=== PATIENT | female | born 1985 | race Caucasian/White ===

== ENCOUNTER 2024-04-15 09:51 | Emergency (ER) | payer MEDICARE, MEDICAID, SELFPAY ==
[2024-04-15 09:53] VITALS: BP 108/73; PULSE 78; RESP 18; TEMP 36.8; O2SAT 98
--- NOTE | 2024-04-15 10:04 | ECG_ITS ---
[facility] Test Date: 2024-04-15 Pat Name: Randa Walsh Department: Room: Gender: Female Shove Up: : 1985 Requested By: Susanne Coker Order Number: [id number] Caldwell MD: Rickie Rivera M.D. Measurements Intervals [place] Rate: 67 P: 77 DC: 169 QRS: 80 QRSD: 93 T: 63 QT: 410 QTc: 435 Interpretive Statements SINUS RHYTHM WITH SINUS ARRHYTHMIA No previous ECG available for comparison Electronically Signed On 04-15-2024 12:06:16 CUSTOMER ACCOUNT SPECIALIST by Rickie Rivera M.D. [email or web address]
[2024-04-15 10:23] LABS: Basophils # 0.1 10^3/uL (0.0-0.1); Basophils % 0.8 %; Eosinophils # 0.2 10^3/uL (0.0-0.8); Hematocrit 35.6 % (36-47); Lymphocytes # 1.7 10^3/uL (0.8-4.8); Lymphocytes % 17.4 %; Mean Corpuscular HGB Conc 30.9 g/dL (30-55); Mean Corpuscular Hemoglobin 23.9 pg (27-33); Mean Corpuscular Volume 77.4 fl (85-98); Mean Platelet Volume 9.5 fL (7.4-10.4); Monocytes # 0.6 10^3/uL (0.2-0.9); Monocytes % 6.7 %; Neutrophils # 6.93 10^3/uL (1.8-7.7); Neutrophils % 72.9 %; Nucleated Red Blood Cells % 0 %; Platelet Count 347 10^3/cmm (157-399); Red Cell Distribution Width 17.9 % (12.1-15.1); White Blood Count 9.51 10^3/uL (3.29-11.43)
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
--- NOTE | 2024-04-15 10:33 | PC.PHAR ---
patient is from [facility]
[2024-04-15 10:41] LABS: HCG Qualitative Urine. Negative (Negative)
[2024-04-15 10:48] LABS: Bilirubin Urine Negative (Negative); Blood Urine Negative (Negative); Glucose Urine UA Negative (Normal); Ketones Urine Negative (Negative); Leukocyte Esterase Urine Negative (Negative); Nitrate Urine Negative (Negative); Protein Urine Negative (Negative); Specific Gravity, Urine 1.006 (1.005-1.030); Urine Appearance Clear (CLEAR); Urine Color Yellow (Yellow); Urobilinogen Urine 0.2 mg/dL (Negative); pH Urine 6.5 (5-7)
[2024-04-15 10:50] LABS: Alanine Aminotransferase 10 U/L (0-33); Albumin Level 4.3 g/dL (3.5-5.2); Alkaline Phosphatase 80 U/L (35-105); Anion Gap 15.3 (5-19); Aspartate Amino Transferase 13 U/L (0-32); Blood Urea Nitrogen 10 mg/dL (6-20); Calcium 9.4 mg/dL (8.5-10.5); Carbon Dioxide 24 mmol/L (22-29); Chloride 102 mmol/L (98-107); Globulin 3.1 g/dL (1.3-4.6); Glomerular Filtration Rate 112.5 mL/min (90-130); Glucose 88 mg/dL (65-115); Osmolality Calculated 282 mOsm/kg (285-295); Potassium 4.3 mmol/L (3.5-5.1); Sodium 137 mmol/L (136-145); Thyroid Stimulating Hormone 1.36 uIU/mL (0.27-4.20); Total Bilirubin 0.2 mg/dL (0.15-1.2); Total Protein 7.4 g/dL (6.6-8.7)
[2024-04-15 10:52] LABS: Acetaminophen < 5.0 ug/mL (10-30); Alcohol Level < 10 mg/dL (0-10); Salicylate < 0.3 mg/dL (3-10)
[2024-04-15 10:56] LABS: Amphetamines Screen Urine Negative (Negative); Barbiturates Screen Urine Negative (Negative); Benzodiazepines Screen Urine Negative (Negative); Cocaine Screen Urine Negative (Negative); Opiate Screen Urine Negative (Negative); PCP Screen Urine Negative (Negative); THC Screen Urine Negative (Negative)
[2024-04-15 10:57] LABS: Bacteria Urine TRACE /hpf; RBC Urine 0-4 /hpf (0-2); Squamous Epithelial Cell Urine 0-4 /hpf (0-5); WBC Urine 0-4 /hpf (0-5)
[2024-04-15 11:24] LABS: Influenza A NEGATIVE (Negative); Influenza B NEGATIVE (Negative); Respiratory Syncytial Virus Ce NEGATIVE (Negative); SARS-CoV-2 PCR NEGATIVE (Negative)
[2024-04-15 13:01] VITALS: BP 115/75; PULSE 70; O2SAT 100
== END 2024-04-15 13:06 | disposition home or self-care (01) ==
PROVIDERS: Emergency Provider Emergency Medicine
DX: R45.6 Violent behavior (principal); Z87.820 Personal history of traumatic brain injury; Z11.52 Encounter for screening for COVID-19
CPT/HCPCS: 36415; 80053; 80306; 80307; 81001; 81025; 84443; 85025; 87637; 93005; 99284

== ENCOUNTER 2024-06-19 17:11 | Emergency (ER) | payer MEDICARE, MEDICAID, SELFPAY ==
[2024-06-19 17:28] VITALS: BP 108/67; PULSE 89; RESP 16; TEMP 36.7; O2SAT 97
--- NOTE | 2024-06-19 17:34 | W.ED.GENADLT ---
HPI - General Adult General: Chief complaint: General Medical Stated complaint: TBI, Med check Time Seen by Provider: 06/19/24 17:18 History of Present Illness: 38-year-old female with past medical history of Ray's disease, TBI, essentially nonverbal and bedridden coming from a [facility] for aggressive behavior, reportedly she unable to get in touch with her boyfriend with the phone became agitated and aggressive, required Ativan by the nursing staff and EMS gave her 2.5 Versed. Upon arrival here she is pleasant cooperative follows commands seems to be calm. No other symptoms, she denies any complaints. Related Data Home Medications ?Medication ?Instructions ?Recorded ?Confirmed acetaminophen 325 mg tablet 650 mg PO Q4H 04/15/24 04/15/24 baclofen 5 mg tablet 5 mg PO TID 04/15/24 04/15/24 bisacodyl 10 mg rectal suppository 10 mg LA DAILY 04/15/24 04/15/24 escitalopram oxalate 20 mg tablet 20 mg PO DAILY 04/15/24 04/15/24 hydroxyzine HCl 25 mg tablet 25 mg PO TID 04/15/24 04/15/24 magnesium hydroxide 400 mg/5 mL 30 ml PO DAILY PRN Constipation 04/15/24 04/15/24 oral suspension (Milk of Magnesia) olanzapine 7.5 mg tablet 7.5 mg PO DAILY 04/15/24 04/15/24 polyethylene glycol 3350 17 17 g PO DAILY 04/15/24 04/15/24 gram/dose oral powder (Miralax) Allergies Allergy/AdvReac Type Severity Reaction Status Date / Time No Known Allergies Allergy Verified 06/19/24 17:33 Review of Systems General: Reports: ROS unobtainable due to medical condition Physical Exam Narrative: EXAM NARRATIVE: General: Alert, no acute distress. Skin: Warm, dry. Head: Normocephalic, atraumatic. Neck: Supple, trachea midline. Eye: Extraocular movements are intact. Ears, nose, mouth and throat: mucosa moist. Cardiovascular: Regular, Normal peripheral perfusion. Respiratory: Lungs are clear to auscultation, respirations are non-labored, breath sounds are equal, Symmetrical chest wall expansion. Gastrointestinal: Soft, Nontender, Non distended Musculoskeletal: Normal ROM, no deformity. Neurological: Alert. She moves all extremities. She grunts. She does seem interactive and apparently she is at her baseline. Psychiatric: Calm pleasant cooperative Course Vital Signs: Vital signs: Vital Signs Temperature 98.0 F 06/19/24 17:28 Pulse Rate 84 06/19/24 19:32 Respiratory Rate 16 06/19/24 19:32 Blood Pressure 132/78 06/19/24 19:32 Pulse Oximetry 97 06/19/24 19:32 Oxygen Delivery Me thod Room Air 06/19/24 19:32 MDM - General Adult Medical Decision Making Patient pleasant cooperative upon arrival here, she did have 1 episode of anxiety and we give her some medicine to treat her anxiety as well as to facilitate lab draw and urinalysis obtaining. Workup without significant abnormalities. Her behavioral outburst will need to be managed by her regular doctor but she is otherwise stable for discharge and outpatient follow-up as she is not a danger to herself or others. Lab Data 06/19/24 17:48 06/19/24 17:48 Laboratory Results WBC 7.28 10^3/uL (3.29-11.43) 06/19/24 17:48 RBC 3.92 10^6/uL (3.85-5.65) 06/19/24 17:48 Hgb 9.60 g/dL (11.27-16.99) L 06/19/24 17:48 Hct 31.8 % (36-47) L 06/19/24 17:48 MCV 81.1 fl (85-98) L 06/19/24 17:48 MCH 24.5 pg (27-33) L 06/19/24 17:48 MCHC 30.2 g/dL (30-55) 06/19/24 17:48 RDW 15.9 % (12.1-15.1) H 06/19/24 17:48 Plt Count 339 10^3/cmm (157-399) 06/19/24 17:48 MPV 9.6 fL (7.4-10.4) 06/19/24 17:48 Neut % (Auto) 55.8 % 06/19/24 17:48 Lymph % (Auto) 30.1 % 06/19/24 17:48 [place] % (Auto) 10.4 % 06/19/24 17:48 Eos % (Auto) 2.9 % 06/19/24 17:48 Baso % (Auto) 0.7 % 06/19/24 17:48 Neut # (Auto) 4.06 10^3/uL (1.8-7.7) 06/19/24 17:48 Lymph # (Auto) 2.2 10^3/uL (0.8-4.8) 06/19/24 17:48 [place] # (Auto) 0.8 10^3/uL (0.2-0.9) 06/19/24 17:48 Eos # (Auto) 0.2 10^3/uL (0.0-0.8) 06/19/24 17:48 Baso # (Auto) 0.1 10^3/uL (0.0-0.1) 06/19/24 17:48 Nucleated RBC % (auto) 0 % 06/19/24 17:48 Nucleated RBCs # 0.0 /100WBC 06/19/24 17:48 Sodium 140 mmol/L (136-145) 06/19/24 17:48 Potassium 4.3 mmol/L (3.5-5.1) 06/19/24 17:48 Chloride 105 mmol/L (98-107) 06/19/24 17:48 Carbon Dioxide 24 mmol/L (22-29) 06/19/24 17:48 Anion Gap 15.3 (5-19) 06/19/24 17:48 BUN 16 mg/dL (6-20) 06/19/24 17:48 Creatinine 0.5 mg/dL (0.5-0.9) 06/19/24 17:48 GFR Calculation 138.8 mL/min (90-130) H 06/19/24 17:48 Glucose 86 mg/dL (65-115) 06/19/24 17:48 Calculated Osmolality 290 mOsm/kg (285-295) 06/19/24 17:48 Calcium 8.9 mg/dL (8.5-10.5) 06/19/24 17:48 Total Bilirubin 0.2 mg/dL (0.15-1.2) 06/19/24 17:48 AST 15 U/L (0-32) 06/19/24 17:48 ALT 14 U/L (0-33) 06/19/24 17:48 Alkaline Phosphatase 75 U/L (35-105) 06/19/24 17:48 Total Protein 6.7 g/dL (6.6-8.7) 06/19/24 17:48 Albumin 3.9 g/dL (3.5-5.2) 06/19/24 17:48 Globulin 2.8 g/dL (1.3-4.6) 06/19/24 17:48 HCG, Qual Negative (Negative) 06/19/24 17:48 Urine Color Yellow (Yellow) 06/19/24 20:51 Urine Appearance Clear (CLEAR) 06/19/24 20:51 Urine pH 7.0 (5-7) 06/19/24 20:51 Ur Specific [place] 1.027 (1.005-1.030) 06/19/24 20:51 Urine Protein Negative (Negative) 06/19/24 20:51 Urine Glucose (UA) Negative (Normal) 06/19/24 20:51 Urine Ketones Trace (Negative) 06/19/24 20:51 Urine Blood Negative (Negative) 06/19/24 20:51 Urine Nitrate Negative (Negative) 06/19/24 20:51 Urine Bilirubin Negative (Negative) 06/19/24 20:51 Urine Urobilinogen 1.0 mg/dL (Negative) 06/19/24 20:51 Ur Leukocyte Esterase Negative (Negative) 06/19/24 20:51 Amorphous Sediment Not Reportable 06/19/24 20:51 No radiology studies performed this visit Discharge Plan Discharge Patient Disposition: Home Clinical Impression: Behavioral problems, Anxiety Condition: Stable Prescriptions: No Action olanzapine 7.5 mg tablet 7.5 mg PO DAILY hydroxyzine HCl 25 mg tablet 25 mg PO TID escitalopram oxalate 20 mg tablet 20 mg PO DAILY baclofen 5 mg tablet 5 mg PO TID acetaminophen 325 mg Tablet 650 mg PO Q4H magnesium hydroxide [Milk of Magnesia] 400 mg/5 mL Suspension 30 ml PO DAILY PRN (Reason: Constipation) bisacodyl 10 mg Suppository 10 mg LA DAILY polyethylene glycol 3350 [Miralax] 17 gram/dose Powder 17 g PO DAILY Discharge Orders: Discharge ED (Routine); Ordered 06/19/24 Ordered By: Kathy Heredia Print Language: Norwegian Coding Level of Care Code ED Mash Tub Cooker for Evertg Love
[2024-06-19 17:58] LABS: Basophils # 0.1 10^3/uL (0.0-0.1); Basophils % 0.7 %; Eosinophils # 0.2 10^3/uL (0.0-0.8); Eosinophils % 2.9 %; Hematocrit 31.8 % (36-47); Lymphocytes # 2.2 10^3/uL (0.8-4.8); Lymphocytes % 30.1 %; Mean Corpuscular HGB Conc 30.2 g/dL (30-55); Mean Corpuscular Hemoglobin 24.5 pg (27-33); Mean Corpuscular Volume 81.1 fl (85-98); Mean Platelet Volume 9.6 fL (7.4-10.4); Monocytes # 0.8 10^3/uL (0.2-0.9); Monocytes % 10.4 %; Neutrophils # 4.06 10^3/uL (1.8-7.7); Neutrophils % 55.8 %; Nucleated Red Blood Cells % 0 %; Platelet Count 339 10^3/cmm (157-399); Red Blood Count 3.92 10^6/uL (3.85-5.65); Red Cell Distribution Width 15.9 % (12.1-15.1); White Blood Count 7.28 10^3/uL (3.29-11.43)
[2024-06-19 18:12] LABS: HCG, Serum Qual Negative (Negative)
[2024-06-19 18:20] LABS: Alanine Aminotransferase 14 U/L (0-33); Albumin Level 3.9 g/dL (3.5-5.2); Alkaline Phosphatase 75 U/L (35-105); Anion Gap 15.3 (5-19); Aspartate Amino Transferase 15 U/L (0-32); Blood Urea Nitrogen 16 mg/dL (6-20); Calcium 8.9 mg/dL (8.5-10.5); Carbon Dioxide 24 mmol/L (22-29); Chloride 105 mmol/L (98-107); Globulin 2.8 g/dL (1.3-4.6); Glomerular Filtration Rate 138.8 mL/min (90-130); Glucose 86 mg/dL (65-115); Osmolality Calculated 290 mOsm/kg (285-295); Potassium 4.3 mmol/L (3.5-5.1); Sodium 140 mmol/L (136-145); Total Bilirubin 0.2 mg/dL (0.15-1.2); Total Protein 6.7 g/dL (6.6-8.7)
[2024-06-19] MEDS: LORazepam 1 MG/0.5 ML injection 2 MG IM (18:29)
[2024-06-19] MEDS: haloperidol inj 5 mg/mL INJ 1 mL IM (18:53)
[2024-06-19 19:32] VITALS: BP 132/78; PULSE 84; RESP 16; O2SAT 97
[2024-06-19 21:05] LABS: Bilirubin Urine Negative (Negative); Blood Urine Negative (Negative); Glucose Urine UA Negative (Normal); Ketones Urine Trace (Negative); Leukocyte Esterase Urine Negative (Negative); Nitrate Urine Negative (Negative); Protein Urine Negative (Negative); Specific Gravity, Urine 1.027 (1.005-1.030); Urine Appearance Clear (CLEAR); Urine Color Yellow (Yellow)
[2024-06-19 21:10] LABS: Bacteria Urine None Seen /hpf; Hyaline Casts Urine 0-4 /lpf; RBC Urine 0-2 /hpf (0-2); Squamous Epithelial Cell Urine 0-5 /hpf (0-5); WBC Urine 0-5 /hpf (0-5)
[2024-06-19 21:23] VITALS: BP 103/66; PULSE 68; RESP 16; O2SAT 97
[2024-06-19 22:51] VITALS: BP 103/68; PULSE 89; RESP 16; O2SAT 98
== END 2024-06-19 22:54 | disposition home or self-care (01) ==
PROVIDERS: Emergency Provider Emergency Medicine
DX: F41.9 Anxiety disorder, unspecified (principal)
CPT/HCPCS: 36415; 80053; 81001; 84703; 85025; 96372; 99284; J1630; J2060

== ENCOUNTER 2024-06-28 11:57 | Inpatient (IN) | payer MEDICARE, MEDICAID, SELFPAY ==
[2024-06-28 12:00] VITALS: BP 97/68; PULSE 100; RESP 18; TEMP 36.8; O2SAT 96
--- NOTE | 2024-06-28 12:32 | CTR_ITS ---
PROCEDURE INFORMATION: Exam: CT Head Without Contrast Exam date and time: 06/28/2024 1:07 PM Age: 38 years old Clinical indication: Altered mental status/memory loss; Additional info: AMS. HX of tbi TECHNIQUE: Imaging protocol: Computed tomography of the head without contrast. Radiation optimization: All CT scans at this facility use at least one of these dose optimization techniques: automated exposure control; mA and/or kV adjustment per patient size (includes targeted exams where dose is matched to clinical indication); or iterative reconstruction. COMPARISON: No relevant prior studies available. RADIATION DOSE METRICS: Total DLP (mGy-cm): 1066.39 FINDINGS: Brain: No intracranial hemorrhage. No acute infarct. No extra-axial fluid collection. Cerebral ventricles: No ventriculomegaly. Paranasal sinuses: Visualized sinuses are unremarkable. No fluid levels. Mastoid air cells: Visualized mastoid air cells are well aerated. Bones: Noam holes noted in the right anterior and posterior skull near the vertex. Soft tissues: Unremarkable. CT/CT head wo con* [id number] IMPRESSION: No acute intracranial abnormality.
--- NOTE | 2024-06-28 12:32 | XRR_ITS ---
PROCEDURE INFORMATION: Exam: XR Chest Exam date and time: 06/28/2024 12:35 PM Age: 38 years old Clinical indication: Other: AMS TECHNIQUE: Imaging protocol: Radiologic exam of the chest. Views: 1 view. COMPARISON: No relevant prior studies available. FINDINGS: Lungs: No consolidation. Pleural spaces: No sizable pleural effusion or pneumothorax. Heart/Mediastinum: No cardiomegaly. Bones/joints: Unremarkable. XR/XR chest 1V portable [id number] IMPRESSION: No acute intrathoracic findings.
[2024-06-28] MEDS: OLANZapine 10 mg ODT PO (12:41)
[2024-06-28 13:15] LABS: Basophils # 0.1 10^3/uL (0.0-0.1); Basophils % 0.6 %; Eosinophils # 0.2 10^3/uL (0.0-0.8); Hematocrit 31.1 % (36-47); Lymphocytes # 1.5 10^3/uL (0.8-4.8); Lymphocytes % 19.2 %; Mean Corpuscular HGB Conc 29.6 g/dL (30-55); Mean Corpuscular Hemoglobin 23.8 pg (27-33); Mean Corpuscular Volume 80.4 fl (85-98); Mean Platelet Volume 9.9 fL (7.4-10.4); Monocytes # 0.6 10^3/uL (0.2-0.9); Monocytes % 7.3 %; Neutrophils # 5.62 10^3/uL (1.8-7.7); Neutrophils % 70.6 %; Nucleated Red Blood Cells % 0 %; Platelet Count 307 10^3/cmm (157-399); Red Blood Count 3.87 10^6/uL (3.85-5.65); Red Cell Distribution Width 15.4 % (12.1-15.1); White Blood Count 7.96 10^3/uL (3.29-11.43)
[2024-06-28] MEDS: haloperidol inj 5 mg/mL INJ 1 mL IVP (13:16)
--- NOTE | 2024-06-28 13:33 | W.ED.GENADLT ---
HPI - General Adult General: Chief complaint: General Medical Stated complaint: Combative, HX of TBI Time Seen by Provider: 06/28/24 12:00 Source: patient Mode of arrival: ambulatory Limitations: no limitations History of Present Illness: Patient is been having increased aggression today after not being allowed to go somewhere else with the other residents at the facility. She has a history of Center Line's and TBI was also mentioned. She has complaints of headache otherwise no acute complaints. On arrival she was acting okay. Had been given 5 of Versed in the ambulance to calm down. Any change in patient's atmosphere such as changing rooms or doing a test does result in significant outburst. Related Data Home Medications ?Medication ?Instructions ?Recorded ?Confirmed acetaminophen 325 mg tablet 650 mg PO Q4H PRN general 04/15/24 06/28/24 discomfort baclofen 5 mg tablet 5 mg PO TID 04/15/24 06/28/24 bisacodyl 10 mg rectal suppository 10 mg [place] DAILY PRN Constipation 04/15/24 06/28/24 escitalopram oxalate 20 mg tablet 20 mg PO DAILY 04/15/24 06/28/24 hydroxyzine HCl 25 mg tablet 25 mg PO TID 04/15/24 06/28/24 magnesium hydroxide 400 mg/5 mL 30 ml PO DAILY PRN Constipation 04/15/24 06/28/24 oral suspension (Milk of Magnesia) olanzapine 7.5 mg tablet 7.5 mg PO BEDTIME 04/15/24 06/28/24 polyethylene glycol 3350 17 17 g PO DAILY PRN Constipation 04/15/24 06/28/24 gram/dose oral powder (Miralax) ammonium lactate 12 % lotion See Rx Instructions .Route .COMPLEX 06/28/24 06/28/24 buspirone 7.5 mg tablet 7.5 mg PO TID 06/28/24 06/28/24 lorazepam 0.5 mg tablet 0.5 mg PO TID aggitation/aggression 06/28/24 06/28/24 olanzapine 5 mg tablet 5 mg PO DAILY depression 06/28/24 06/28/24 Allergies Allergy/AdvReac Type Severity Reaction Status Date / Time No Known Allergies Allergy Verified 06/19/24 17:33 Review of Systems General: Reports: ROS unobtainable due to mental status Physical Exam Narrative: EXAM NARRATIVE: General: Alert, no acute distress. Skin: Warm, dry. Head: Normocephalic, atraumatic. Neck: Supple, trachea midline. Eye: Extraocular movements are intact. Ears, nose, mouth and throat: mucosa moist. Cardiovascular: Regular, Normal peripheral perfusion. Respiratory: Lungs are clear to auscultation, respirations are non-labored, breath sounds are equal, Symmetrical chest wall expansion. Gastrointestinal: Soft, Nontender, Non distended Musculoskeletal: Normal ROM, no deformity. Neurological: Alert. She moves all extremities. She grunts. She does seem interactive and apparently she is at her baseline. Psychiatric: Calm pleasant cooperative, but still with occasional outburst Course Vital Signs: Vital signs: Vital Signs Temperature 98.2 F 06/28/24 12:00 Pulse Rate 100 06/28/24 12:00 Respiratory Rate 18 06/28/24 12:00 Blood Pressure 97/68 06/28/24 12:00 Pulse Oximetry 96 06/28/24 12:00 Oxygen Delivery Me thod Room Air 06/28/24 12:00 MDM - General Adult Medical Decision Making Patient's pattern of aggressive behavior has greatly increased this year. With visits here to the ER in April and then now the second visit this month. Spoke with Dr. Ramesh after reviewing labs and them being unremarkable. He is in agreement that patient has room for improvement and would benefit from inpatient stay. Medical Records I reviewed the patient's medical records. Lab Data I reviewed the patient's lab results. 06/28/24 13:02 06/28/24 13:02 Radiology Impressions Chest X-Ray 06/28/24 12:32 IMPRESSION: No acute intrathoracic findings. Head CT 06/28/24 12:32 IMPRESSION: No acute intracranial abnormality. Laboratory Results WBC 7.96 10^3/uL (3.29-11.43) 06/28/24 13:02 RBC 3.87 10^6/uL (3.85-5.65) 06/28/24 13:02 Hgb 9.20 g/dL (11.27-16.99) L 06/28/24 13:02 Hct 31.1 % (36-47) L 06/28/24 13:02 MCV 80.4 fl (85-98) L 06/28/24 13:02 MCH 23.8 pg (27-33) L 06/28/24 13:02 MCHC 29.6 g/dL (30-55) L 06/28/24 13:02 RDW 15.4 % (12.1-15.1) H 06/28/24 13:02 Plt Count 307 10^3/cmm (157-399) 06/28/24 13:02 MPV 9.9 fL (7.4-10.4) 06/28/24 13:02 Neut % (Auto) 70.6 % 06/28/24 13:02 Lymph % (Auto) 19.2 % 06/28/24 13:02 [place] % (Auto) 7.3 % 06/28/24 13:02 Eos % (Auto) 2.0 % 06/28/24 13:02 Baso % (Auto) 0.6 % 06/28/24 13:02 Neut # (Auto) 5.62 10^3/uL (1.8-7.7) 06/28/24 13:02 Lymph # (Auto) 1.5 10^3/uL (0.8-4.8) 06/28/24 13:02 [place] # (Auto) 0.6 10^3/uL (0.2-0.9) 06/28/24 13:02 Eos # (Auto) 0.2 10^3/uL (0.0-0.8) 06/28/24 13:02 Baso # (Auto) 0.1 10^3/uL (0.0-0.1) 06/28/24 13:02 Nucleated RBC % (auto) 0 % 06/28/24 13:02 Nucleated RBCs # 0.0 /100WBC 06/28/24 13:02 Sodium 142 mmol/L (136-145) 06/28/24 13:02 Potassium 3.8 mmol/L (3.5-5.1) 06/28/24 13:02 Chloride 105 mmol/L (98-107) 06/28/24 13:02 Carbon Dioxide 26 mmol/L (22-29) 06/28/24 13:02 Anion Gap 14.8 (5-19) 06/28/24 13:02 BUN 9 mg/dL (6-20) 06/28/24 13:02 Creatinine 0.5 mg/dL (0.5-0.9) 06/28/24 13:02 GFR Calculation 138.8 mL/min (90-130) H 06/28/24 13:02 Glucose 110 mg/dL (65-115) 06/28/24 13:02 Calculated Osmolality 293 mOsm/kg (285-295) 06/28/24 13:02 Calcium 8.8 mg/dL (8.5-10.5) 06/28/24 13:02 Total Bilirubin 0.2 mg/dL (0.15-1.2) 06/28/24 13:02 AST 13 U/L (0-32) 06/28/24 13:02 ALT 11 U/L (0-33) 06/28/24 13:02 Alkaline Phosphatase 78 U/L (35-105) 06/28/24 13:02 Total Protein 6.8 g/dL (6.6-8.7) 06/28/24 13:02 Albumin 3.7 g/dL (3.5-5.2) 06/28/24 13:02 Globulin 3.1 g/dL (1.3-4.6) 06/28/24 13:02 TSH 1.54 uIU/mL (0.27-4.20) 06/28/24 13:02 All radiology interpretation(s) finalized by discharge Critical Care Time Critical Care Time: Critical Care Time: Yes Total Critical Care Time: 36 Attestation: This case had a high probability of a clinically significant, sudden, or life threatening deterioration of this patient's condition which required my full and direct attention, intervention and personal management. Discharge Plan Discharge Patient Disposition: Admitted As Inpatient Clinical Impression: Aggressive behavior of adult, History of traumatic brain injury, David disease Condition: Stable Coding Level of Care Code ED Elevator Adjuster for Nika Aleman
[2024-06-28] MEDS: LORazepam 1 MG/0.5 ML injection 2 MG IVP (13:44)
[2024-06-28 13:46] LABS: Alanine Aminotransferase 11 U/L (0-33); Albumin Level 3.7 g/dL (3.5-5.2); Alkaline Phosphatase 78 U/L (35-105); Anion Gap 14.8 (5-19); Aspartate Amino Transferase 13 U/L (0-32); Blood Urea Nitrogen 9 mg/dL (6-20); Calcium 8.8 mg/dL (8.5-10.5); Carbon Dioxide 26 mmol/L (22-29); Chloride 105 mmol/L (98-107); Globulin 3.1 g/dL (1.3-4.6); Glomerular Filtration Rate 138.8 mL/min (90-130); Glucose 110 mg/dL (65-115); Osmolality Calculated 293 mOsm/kg (285-295); Potassium 3.8 mmol/L (3.5-5.1); Sodium 142 mmol/L (136-145); Thyroid Stimulating Hormone 1.54 uIU/mL (0.27-4.20); Total Bilirubin 0.2 mg/dL (0.15-1.2); Total Protein 6.8 g/dL (6.6-8.7)
--- NOTE | 2024-06-28 16:22 | PC.NURSE ---
UNABLE TO CATH PT FOR URINE SAMPLE DUE TO PT BEHAVIOR. DR. JUDGE AWARE.
[2024-06-28 16:26] VITALS: BP 85/64; PULSE 84; O2SAT 97
[2024-06-28 16:30] VITALS: BP 85/67; PULSE 84; O2SAT 97
[2024-06-28 17:03] VITALS: BMI 22.2
[2024-06-28 21:27] VITALS: BP 94/59; PULSE 88; RESP 14; TEMP 36.8; O2SAT 96
[2024-06-29] VITALS (11 sets, daily range): BP systolic 82–130; BP diastolic 56–72; PULSE 61–110; RESP 14–19; TEMP 36.4–36.8; O2SAT 90–98
[2024-06-29 01:18] LABS: Bilirubin Urine Negative (Negative); Blood Urine Negative (Negative); Glucose Urine UA Negative (Normal); Ketones Urine Negative (Negative); Leukocyte Esterase Urine Negative (Negative); Nitrate Urine Negative (Negative); Protein Urine Trace (Negative); Specific Gravity, Urine 1.026 (1.005-1.030); Urine Appearance Clear (CLEAR); Urine Color Yellow (Yellow); pH Urine 6.5 (5-7)
[2024-06-29 01:21] LABS: Add Urine Microscopic? YES; Bacteria Urine 2+ /hpf; Hyaline Casts Urine 1.21 /lpf; RBC Urine 0-2 /hpf (0-2); WBC Urine 0-5 /hpf (0-5)
[2024-06-29] MEDS: diphenhydrAMINE 50 mg/mL SDV 1mL IM ×2 (08:42→13:49)
[2024-06-29] MEDS: haloperidol inj 5 mg/mL INJ 1 mL IM ×2 (08:42→13:49)
[2024-06-29] MEDS: LORazepam 1 MG/0.5 ML injection 2 MG IM ×2 (09:36→13:49)
--- NOTE | 2024-06-29 11:05 | PC.NURSE ---
Patient very restless and wanting to walk. Patient [employer] has been walking with patient in the mcneal assisted as patient is unsteady on her feet. Patient not combative at this time, but verbalizing multiple times wanting to go home.
[2024-06-29 11:32] LABS: Amphetamines Screen Urine Negative (Negative); Barbiturates Screen Urine Negative (Negative); Benzodiazepines Screen Urine Positive (Negative); Cocaine Screen Urine Negative (Negative); Opiate Screen Urine Negative (Negative); PCP Screen Urine Negative (Negative); THC Screen Urine Negative (Negative)
[2024-06-29] MEDS: OLANZapine 5 mg ODT PO (12:49)
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
--- NOTE | 2024-06-29 15:33 | PC.NURSE ---
Report called to RUFINO in ICU.
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
[2024-06-29] MEDS: dexmedeTOMIDine 0.9 % NaCL 400 MCG/100 ML PREMIX IV (15:57)
--- NOTE | 2024-06-29 15:59 | PC.NURSE ---
received to icu 9 very restless and agitated severe tremors noted unable to stand all extremities moving broken speech noted precedex gtt started in site left arm , assisted to recliner at this time . sitter at bedside
--- NOTE | 2024-06-29 17:28 | PC.NURSE ---
resting in recliner at this time on precedex gtt with one on one sitter at this time . no distress noted
[2024-06-30] VITALS (43 sets, daily range): BP systolic 80–116; BP diastolic 52–82; PULSE 52–101; RESP 14–26; TEMP 36.4–36.6; O2SAT 94–100
--- NOTE | 2024-06-30 03:19 | PC.NURSE ---
Soft BP's: Dr. Matamoros notified of soft BP's @2663. No new orders at this time.
[2024-06-30] MEDS: sodium chloride 0.9% 1,000 ML 999 ML IV (03:50)
[2024-06-30] MEDS: haloperidol 5 mg Tablet PO (07:18)
[2024-06-30] MEDS: LORazepam 1 MG/0.5 ML injection 2 MG IVP (08:55)
--- NOTE | 2024-06-30 10:21 | PC.NURSE ---
received this am awaken was very restless and agitated in room with sitter became combative up out of bed very unsteady on feet, in to assist po haldol given in ice cream pt able to redirect for short time but but became increasing aggresive code 10 called assisted back to bed doctor called and iv ativan given along with precedex gtt restarted pt requesting boyfriennav Brizuela called , PLaced call to [facility] to inquire about this was given moralesiendevon phone number [phone] but related we were not allowed to call without diana permission,, diana called [phone] and was informed that we were not to call him that he makes situation worse and she needed to focus on herself and getting better . Then was questioned by diana why she was in icu ,, explained iv medication to calm pt
[2024-06-30] MEDS: escitalopram 10 mg Tablet 20 MG PO (12:25)
[2024-06-30] MEDS: OLANZapine 5 mg ODT 7.5 MG PO (12:25)
[2024-06-30] MEDS: haloperidol inj 5 mg/mL INJ 1 mL IM (13:21)
[2024-06-30] MEDS: hyDROXYzine 25 mg Capsule PO (13:26)
--- NOTE | 2024-06-30 13:40 | W.PM.BREST ---
Face to Face: Restrn/Seclusion Events leading up to initiation: Combative/Striking out at staff or others Evaluation of patient's immediate situation: Signs of psychological distress Patient reaction since intervention applied: Behaviors/threats have lessened, but still present Recent labs reviewed: Yes Review of medications: Yes Patient's current medical/behavioral condition: No new concerns since last ROS Need for restraint or seclusion is: Continued Attending notified: Attending completed assessment
--- NOTE | 2024-06-30 13:57 | PC.NURSE ---
Patient became agitated and started pulling on all restraints, screaming, kicking, and attempting to tear and everything within reach, including her IV line, which she successfully pulled out. A Code 10 was called and myself, Ja Zabala RN, Sammy Brizuela RN, Marija Oscar RN, De with security, and Vaughn with security assisted to restrain patient utilizing SAFE techniques to prevent injury to herself or staff. Anay Hernandez RN obtained a verbal order for Haldol [address] Lynn to administer IM now. This was administered at 1405 and a new IV was initiated to resume Precedex. Dr. Lynn is going to continue talking with Dr. Noriega about the appropriate regimen for patient.
[2024-06-30] MEDS: LORazepam 1 MG/0.5 ML injection 2 MG IM (13:59)
[2024-06-30] MEDS: haloperidol inj 5 mg/mL INJ 1 mL 10 MG IM ×2 (14:25→17:35)
[2024-06-30] MEDS: dexmedeTOMIDine 0.9 % NaCL 400 MCG/100 ML PREMIX 7.77 MCG IV (14:53)
--- NOTE | 2024-06-30 15:12 | PM.MISC ---
Miscellaneous Note Purpose of Documentation: Patient has had 3 more episodes of aggressiveness and agitation. I have now spoken with Dr. Noriega from psychiatry twice. After a 5 mg dose of Haldol at 2 PM was unsuccessful I increased this dose to Haldol 10 mg at 230. At that time she was able to get an IV replaced and restarted on Precedex at max dose. Patient has been stable since 230 pm and sleeping. The plan will be to proceed with 1 antipsychotic at this time. Zyprexa at a increased dose from her home dose at Zyprexa [address] twice daily. Dr. Noriega recommends adding Cogentin 1 mg twice daily for extrapryramidal side effects. If patient were to have further episodes and require medication, patient will be given Haldol 10 mg IV along with Benadryl 50 mg IV for this episode. The overall goal is that the Zyprexa will treat her symptoms of agitation and aggressiveness at these higher doses and will be able to wean off the Precedex.
[2024-06-30] MEDS: OLANZapine 5 mg ODT 10 MG PO (17:15)
[2024-06-30] MEDS: benztropine 1 mg Tablet PO (17:15)
[2024-06-30] MEDS: diphenhydrAMINE 50 mg/mL SDV 1mL IVP (17:31)
[2024-06-30] MEDS: LORazepam 1 MG/0.5 ML injection 0.5 MG IVP ×2 (17:37→22:50)
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
--- NOTE | 2024-06-30 18:41 | P.PN_ITS ---
Subjective 2 Subjective: Patient was seen around 8 AM this morning. I had trouble understanding her but she was saying yes to a lot of my questions. And then later asking when she can go home. She was a poor historian. Vitals/I&O/Wt Last Vital Signs Temp 98 F 06/30/24 12:00 Pulse 70 06/30/24 18:00 Resp 20 H 06/30/24 18:00 BP 109/82 06/30/24 18:00 Pulse Ox 100 06/30/24 18:00 O2 Del Method Room Air 06/30/24 06:00 06/30/24 06/30/24 06/30/24 06:59 14:59 22:59 Intake Total 1250 / 2205.081 497.784 / 497.784 680.057 / 1177.841 Output Total 1999 Balance 1250 / 805.081 497.784 / 497.784 -1319.943 / -822.159 Weight last 48 hrs Weight 63.367 kg Weight 62.142 kg Physical Exam 2 Narrative: Patient did allow me to examine her this morning. 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 I was not able to obtain information if patient has a neurologist or psychiatrist (2) Aggressive behavior of adult: Discussed with Dr. 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 twice daily. In addition patient will be on Cogentin for extraparametal side effects. If patient continues to show this agitation and aggressive patient will be dosed with Haldol 10 mg IV along with Benadryl 50 mg. This afternoon we have had some success with this regimen. She continues on Precedex as well. We are hoping to wean the Precedex as the higher dose of Zyprexa starts to take effect. Greatly appreciate the assistance of Dr. Noriega and we will work together to help this patient. PDMP PDMP Reviewed: Not Reviewed Attestations 2 Medical Necessity Statement*: Patient report requires inpatient management and IV management of patient's aggressive and agitation Coding Level of Care Code Acute Code for Chg Fwd Diagnoses [place] disease G10 Aggressive behavior of adult R46.89 Agitation R45.1 Depression F32.A History of anxiety Z86.59 penitentiary resident Z78.9 Patient has guardian History of traumatic brain injury Z87.820
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
--- NOTE | 2024-06-30 21:50 | PC.NURSE ---
Medical Restraints No agitation noted thus far from 1899 to 2099. Patient's bilateral lower and upper extremities moving in a spastic, involuntary manner. Concern for possible loss of IV with continuous medications administering. Dr. Matamoros contacted and order received for bilateral wrist medical restraints.
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
[2024-06-30] MEDS: dexmedeTOMIDine 0.9 % NaCL 400 MCG/100 ML PREMIX 9.32 MCG IV (22:49)
[2024-07-01] VITALS (137 sets, daily range): BP systolic 82–143; BP diastolic 56–86; PULSE 0–134; RESP 12–29; TEMP 35.7–36.9; O2SAT 92–100
[2024-07-01] MEDS: haloperidol inj 5 mg/mL INJ 1 mL 10 MG IM ×3 (06:15→18:32)
[2024-07-01] MEDS: LORazepam 1 MG/0.5 ML injection 2 MG IVP ×3 (06:16→18:33)
[2024-07-01] MEDS: diphenhydrAMINE 50 mg/mL SDV 1mL IVP ×3 (06:18→18:33)
[2024-07-01] MEDS: ziprasidone 20 mg/mL SDV IM (06:58)
--- NOTE | 2024-07-01 07:00 | PC.NURSE ---
Code 10's At approximately 0600, CURTIS Lopez and this nurse helping patient to commode to void. Baseline spastic muscle movement noted. When helping patient pull up pants and transfer back to bed, patient starts yelling for us to call [employer], attempting to hit staff intentionally, and wrapped legs around CURTIS Lopez. CURTIS Lopez, CURTIS Farley, and this nurse able to move patient to end of bed. Code 10 called at 0608. Patient attempting to hit, kick, and headbutt staff. Chas Mckeon RN, Vladislav, , Security Rm Tina, House supervisor, Erica Celis, CURTIS, Sandra Robert RN, and Akila [facility] arrived at bedside to assist. Four point soft restraints initiated at 0615 to bilateral wrists/ankles. Ordered PRN haldol and ativan administered at [address] Matamoros at bedside attempting verbal deescalation; verbal order received to titrate precedex up to 1 mcg/kg/hr. Ordered PRN benadryl administered at 0618. Patient then continued to ignore safety instructions while pulling at restraints and attempting to get out of bed until about 0635. Patient then laid back marginally calmer allowing distraction from behavior. Patient assisted in eating and drinking. At approximately 0648, patient again began yelling for staff to call [employer], once again pulling at restraints, attempting to climb out of bed and kicking legs towards staff. Patient twisting in restraints and maneuvering body almost off the side of the bed. Second code 10 called. Chas Mckeon RN, Susie Shelby RN, Akila [facility], security Kc Jay, security, Kelsey, RN, and this nurse present at bedside. Patient repositioned in bed with four point restraints still on bilateral wrists/ankles. Dr. Matamoros on unit; order received for 20 mg geodon IM. Geodon administered at 0658. Patient continuing to scream out and pull at restraints.
--- NOTE | 2024-07-01 07:27 | P.NPUPN_ITS ---
Subjective NPU 2 Subjective: Patient presented today reporting that she is doing okay. She reportedly had less outbursts per staff reports and direct observation. She continues to however need as needed medication and continued to be in soft restraints for period of time. There were no reports of side effects of the medication and she seemed to tolerate it more and our hopes are to continue to titrate her medication and reduce the need for as needed medication. Mental Status Exam 2 MSE Comments: This is a well-nourished well-developed white female with limited grooming but adequate eye contact. No abnormal movements except for extreme psychomotor agitation. Somewhat cooperative with exam in moderate to extreme distress. Speech was increased rate and normal volume and significant dysarthria. Mood not clearly described, affect was irritable. Thought process appeared linear. Thought content: Patient did not report suicidal or homicidal ideation, there were no delusions reported or noted, she did not appear to be attending to internal stimuli. Attention and concentration were limited and memory was mostly unreliable but no more formally tested. She was alert and oriented to person and possibly place. Insight and judgment appear limited versus impaired and impulse control is impaired. Vitals/I&O/Wt Last Vital Signs Temp 98 F 07/01/24 04:30 Pulse 71 07/01/24 07:15 Resp 23 H 07/01/24 07:15 BP 97/63 07/01/24 07:15 Pulse Ox 99 07/01/24 07:15 O2 Del Method Room Air 07/01/24 04:30 06/30/24 07/01/24 07/01/24 22:59 06:59 14:59 Intake Total 749.870 / 1247.654 61.262 / 1308.916 480 / 480 Output Total 1999 Balance -1250.130 / -752.346 61.262 / -691.084 480 / 480 Weight last 48 hrs Weight 63.367 kg Data NPU 06/28/24 13:02 06/28/24 13:02 A&P Assessment and plan (1) David disease: (2) History of traumatic brain injury: (3) Aggressive behavior of adult: (4) At risk for polypharmacy: (5) Depression: (6) History of anxiety: (7) History of major depression: Plan This is a 38-year-old white female with a reported history of TBI and [place]'s disease who presents from a personal-long-term with reports of aggression and agitation that has been escalating in relation to boundaries and limitations that are imposed in any given time. She is a limited historian and it is unclear what her history really is outside of her clearly having [place]'s based on her movements and having medications in the mood stabilization depression and anxiety rounds in a likely polypharmacy. 1. Continue current medication. 2. Obtain collateral information. Appears patient has history of addiction, unclear if TBI history is accurate. 3. Appreciate hospitalist consult and will look to give her Precedex to try to remain in the hyperkinetic agitation that is superimposed on her [place]'s disease while we try to figure out how she got to her current medication regiment to identify reasonable changes. 4. Will consult neurology to get some insight into any concerns about the current medications given her movement disorder. 5. Will consider transfer to neuropsychiatric unit when stabilized. 6. Agree with continued as needed medication including the option of having Geodon IM 20 mg up to twice a day. PDMP PDMP Reviewed: Not Reviewed Attestations NPU 2 Medical Necessity Statement*: Inpatient hospitalization is medically necessary and the clinically appropriate intervention at this time. Will monitor medications and make changes as indicated. Likely length of stay 3-6 days. Coding Level of Care Code Acute Code for [facility] Fwd Diagnoses [place] disease G10 History of traumatic brain injury Z87.820 Aggressive behavior of adult R46.89 At risk for polypharmacy Z91.89 Depression F32.A History of anxiety Z86.59 History of major depression Z86.59
[2024-07-01] MEDS: OLANZapine 5 mg ODT 10 MG PO ×2 (07:32→17:16)
[2024-07-01] MEDS: LORazepam 1 MG/0.5 ML injection 0.5 MG IVP ×3 (07:32→23:29)
[2024-07-01] MEDS: benztropine 1 mg Tablet PO ×2 (07:34→17:16)
[2024-07-01] MEDS: escitalopram 10 mg Tablet 20 MG PO (07:34)
--- NOTE | 2024-07-01 07:48 | PC.NURSE ---
pt aggressive and pulling at restraints. called code security around 0745 due to patient trying to throw herself out of the bed with restraints on, restraints were removed to reposition patient. Noted skin tears to patient's right foot after patient was thrashing and kicking.
--- NOTE | 2024-07-01 08:17 | PC.NURSE ---
pt got foot out of restraint and got off bed, witnessed by this nurse and warehouse insulation worker, when trying to help patient back to bed she swung at this nurse, security was called and patient was helped back into bed and restraints were resecured.
[2024-07-01] MEDS: dexmedeTOMIDine 0.9 % NaCL 400 MCG/100 ML PREMIX 15.54 MCG IV (08:58)
--- NOTE | 2024-07-01 09:18 | PC.NURSE ---
pt agitated and pulling at restraints and kicking and thrashing in the bed. Patient got left foot out of restraint and was trying to kick this nurse. Security was called again and security helped reposition patient and pull her up in bed and secure the restraint to her left foot again.
[2024-07-01] MEDS: valproic acid inj 500 MG in sodium chloride 0.9% 50 ML 55 MG IV ×2 (10:16→17:20)
--- NOTE | 2024-07-01 13:49 | PC.NURSE ---
patient was thrashing and kicking in bed and got her left foot loose from the restraint and continued kicking and thrashing around. Security was called and another nurse also responded and helped secure the restraint.
[2024-07-01] MEDS: dexmedeTOMIDine 0.9 % NaCL 400 MCG/100 ML PREMIX 12.43 MCG IV (16:23)
--- NOTE | 2024-07-01 19:12 | PM.PN ---
Subjective Subjective: Patient mumbling and grunting unable to communicate with me this morning. Per nursing staff patient had 2 CODE STATUS called this morning I did speak with the overnight physician who responded around 07/20/1929. She was given Geodon at that time. Of note the Precedex was weaned off again through the night due to bradycardia. While I saw the early this morning around 9 there have been no code TENS ordered and I have not been contacted with any further problems today. When patient gets agitated the Haldol 10 mg IM with Benadryl is supposed to be used. The B52 regimen is too small dose for this patient Vitals/I&O/Wt Last Vital Signs Temp 98 F 07/01/24 04:30 Pulse 68 07/01/24 18:00 Resp 23 H 07/01/24 17:30 BP 118/66 07/01/24 18:00 Pulse Ox 98 07/01/24 18:00 O2 Del Method Room Air 07/01/24 18:00 07/01/24 07/01/24 07/01/24 06:59 14:59 22:59 Intake Total 61.262 / 1308.916 914.906 / 914.906 263.832 / 1178.738 Balance 61.262 / -691.084 914.906 / 914.906 263.832 / 1178.738 Weight last 48 hrs Weight 63.367 kg Physical Exam Narrative: Patient was calm for me to examine her this morning. She is thin appears malnourished has abnormal dentition heart is regular rate and rhythm no loud murmur auscultated lungs were clear to auscultation without wheezes rales or rhonchi abdomen was soft flat nontender nondistended positive bowel sounds no hepatosplenomegaly extremities free of edema Data 06/28/24 13:02 06/28/24 13:02 A&P Assessment and plan (1) [place] disease: (2) History of traumatic brain injury: (3) Aggressive behavior of adult: (4) At risk for polypharmacy: (5) Depression: (6) History of anxiety: (7) History of major depression: Plan This is a 38-year-old white female with a reported history of TBI and [place]'s disease who presents from a personal-[facility] with reports of aggression and agitation that has been escalating in relation to boundaries and limitations that are imposed in any given time. Patient has a legal guardian and resides at [facility]. Patient is currently being managed with Zyprexa 10 mg p.o. twice daily along with Cogentin 1 mg twice daily. She is improving slightly. I discussed with Dr. Noriega today and he agrees to continue with this regimen. Patient is still requiring Precedex. Patient's severe outbursts are seem to be improving as there have been no outburst since this morning. NOTE: When patient is having outburst Haldol 10 mg IM with Benadryl 50 mg IV is what has been working. B-52 regimen does not work in this patient Patient is being maintained on an Ativan 0.5 mg 3 times daily dose. We have stopped her buspirone and hydroxyzine. She continues on Lexapro. These changes have been made to reduce polypharmacy and focus on the medications that seem to be most effective and maximize their dosing. 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
--- NOTE | 2024-07-01 20:29 | PC.NURSE ---
4-point Violent restraints lessened to 2-point medical restraints at this time. Physician notified.
[2024-07-02] VITALS (347 sets, daily range): BP systolic 89–115; BP diastolic 53–79; PULSE 42–137; RESP 13–31; TEMP 36.1–37; O2SAT 60–100; BMI 22.4
[2024-07-02] MEDS: diphenhydrAMINE 50 mg/mL SDV 1mL IVP ×3 (00:45→19:25)
[2024-07-02] MEDS: haloperidol inj 5 mg/mL INJ 1 mL 10 MG IM ×3 (00:45→19:30)
[2024-07-02] MEDS: LORazepam 1 MG/0.5 ML injection 2 MG IVP ×3 (00:45→14:01)
[2024-07-02] MEDS: dexmedeTOMIDine 0.9 % NaCL 400 MCG/100 ML PREMIX 6.21 MCG IV (02:07)
[2024-07-02] MEDS: valproic acid inj 500 MG in sodium chloride 0.9% 50 ML 55 MG IV ×3 (02:28→17:16)
[2024-07-02] MEDS: ziprasidone 20 mg/mL SDV IM (03:51)
--- NOTE | 2024-07-02 04:03 | ECG_ITS ---
[facility] 2024[facility]07[facility]02 Pat Name: Randa Walsh Department: Room: [facility] Gender: Female Microbiology Technician: : 1985 Requested By: Annalisa Matamoros Order Number: [id number] Javi MD: Debbi De Leon M.D. Measurements Intervals [place] Rate: 55 P: 71 ID: [id number] QRS: 74 QRSD: 88 T: 67 QT: 477 QTc: 460 Interpretive Statements SINUS BRADYCARDIA Compared to ECG 04/15/2024 11:59:44 Sinus rhythm no longer present Sinus arrhythmia no longer present Electronically Signed On 07-03-2024 06:31:15 CDT by Debbi De Leon M.D. [email or web address]
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
--- NOTE | 2024-07-02 06:59 | P.NPUPN_ITS ---
Subjective NPU 2 Subjective: Patient presented today reporting he is doing okay. She was happy about the idea that discharge might happen tomorrow. Staff able to talk to facility describing her current functioning and they report that this is a likely reflection of baseline. We briefly discussed this patient saying that it appears that she is at a place where they would be able to continue to manage care and so the tentative plan for discharge is for tomorrow. She did not voice any specific complaints. Mental Status Exam 2 MSE Comments: This is a well-nourished well-developed white female with limited grooming but adequate eye contact. No abnormal movements except for extreme psychomotor agitation. Somewhat cooperative with exam in moderate to extreme distress. Speech was increased rate and normal volume and significant dysarthria. Mood not clearly described, affect was irritable. Thought process appeared linear. Thought content: Patient did not report suicidal or homicidal ideation, there were no delusions reported or noted, she did not appear to be attending to internal stimuli. Attention and concentration were limited and memory was mostly unreliable but no more formally tested. She was alert and oriented to person and possibly place. Insight and judgment appear limited versus impaired and impulse control is impaired. Vitals/I&O/Wt Last Vital Signs Temp 98.4 F 07/02/24 04:40 Pulse 55 L 07/02/24 06:00 Resp 16 07/02/24 06:00 BP 91/63 07/02/24 06:00 Pulse Ox 100 07/02/24 06:00 O2 Del Method Room Air 07/01/24 18:00 07/01/24 07/01/24 07/02/24 14:59 22:59 06:59 Intake Total 914.906 / 914.906 339.087 / 1253.993 339.215 / 1593.208 Output Total 350 / 350 Balance 914.906 / 914.906 339.087 / 1253.993 -10.785 / 1243.208 Weight last 48 hrs Weight 63 kg Data NPU 06/28/24 13:02 06/28/24 13:02 A&P Assessment and plan (1) Juab disease: (2) History of traumatic brain injury: (3) Aggressive behavior of adult: (4) At risk for polypharmacy: (5) Depression: (6) History of anxiety: (7) History of major depression: Plan This is a 38-year-old white female with a reported history of TBI and Ju[place]'s disease who presents from a [facility] [facility] with reports of aggression and agitation that has been escalating in relation to boundaries and limitations that are imposed in any given time. She is a limited historian and it is unclear what her history really is outside of her clearly having Juab's based on her movements and having medications in the mood stabilization depression and anxiety rounds in a likely polypharmacy. 1. Continue current medication. 2. Obtain collateral information. Appears patient has history of addiction, unclear if TBI history is accurate. Report from her facility is that she is likely at baseline. 3. Appreciate hospitalist consult and will look to give her Precedex to try to remain in the hyperkinetic agitation that is superimposed on her Juab's disease while we try to figure out how she got to her current medication regiment to identify reasonable changes. 4. Will consult neurology to get some insight into any concerns about the current medications given her movement disorder. 5. Will consider transfer to neuropsychiatric unit when stabilized. 6. Agree with continued as needed medication including the option of having Geodon IM 20 mg up to twice a day. 7. Tentative plan for discharge tomorrow. PDMP PDMP Reviewed: Not Reviewed Attestations NPU 2 Medical Necessity Statement*: Inpatient hospitalization is medically necessary and the clinically appropriate intervention at this time. Will monitor medications and make changes as indicated. Likely length of stay 1-3 days. Coding Level of Care Code Acute Code for [facility] Fwd Diagnoses [place]ab disease G10 History of traumatic brain injury Z87.820 Aggressive behavior of adult R46.89 At risk for polypharmacy Z91.89 Depression F32.A History of anxiety Z86.59 History of major depression Z86.59
[2024-07-02] MEDS: LORazepam 1 MG/0.5 ML injection 0.5 MG IVP ×3 (08:04→23:32)
[2024-07-02] MEDS: OLANZapine 5 mg ODT 10 MG PO ×2 (09:17→17:15)
[2024-07-02] MEDS: benztropine 1 mg Tablet PO ×2 (09:17→17:15)
[2024-07-02] MEDS: escitalopram 10 mg Tablet 20 MG PO (09:17)
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
--- NOTE | 2024-07-02 10:55 | PC.NURSE ---
Late note: Restraints attempted to be discontinued this morning, however upon removal patient is immediately violent towards staff. All moring she has been having frequent aggressive outbursts where she attempts to kick, punch, and bite staff. Ability to use medication to calm patient has been minimally effective due to vital sign constraints. Order for 4 [address] restraints renewed by Dr Stanley. Will continue to asses for appropriateness and alternatives.
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
[2024-07-02] MEDS: dexmedeTOMIDine 0.9 % NaCL 400 MCG/100 ML PREMIX 9.32 MCG IV (14:11)
--- NOTE | 2024-07-02 14:12 | PC.NURSE ---
From 12p-1pm patient remained calm, no attempts to harm staff. Nurse discussed behaviors with the patient and patient said Yes when the nurse asked if she would stop attempting to harm staff. REmoved leg restraints. By 2pm patient continued to remain calm. Nurse again disccused with the patient removal of bilateral wrist restraints and need for her to not harm staff. Patient verbalized understanding. NUrse removed bilateral wrist restraints. Patient remained calm for about 10 minutes and then suddenly became violent. Trying to punch, kick, and bite staff. Yelling unintelligibly. Verbal reorientation, attempting to resolve comfort needs, and ativan was given to calm patient but had no effect. Patient continued to try and harm staff and was at risk of harming herself by slamming body parts into bed rails. 4 point restraints reapplied. Precedex increased.
--- NOTE | 2024-07-02 18:02 | PC.NURSE ---
SHift SUmmary: Went back into afib with rvr this morning. Attempting to treat by adding on PO amiodarone, IVP amiodarone, and digoxin. Heart rate has been less variable overal, but still remains in afib, rate usually between 90-110, occaisonally as high as 130.
--- NOTE | 2024-07-02 18:21 | PC.NURSE ---
SHift SUmmary: Patient remains in 4 point restraints due to continued violence towards staff. Attempts have been made to remove them but it continues to be unsafe to do so. Dr hamlin has rounded today and will discuss plan of care with Shahana woodard in the morning.
--- NOTE | 2024-07-02 20:29 | PC.NURSE ---
Since coming on shift at 1900 patient has had 5 episodes of outbursts, that include flailing her body and attempting to become physcially aggressive with staff. Patient denied pain, needing to use the bathroom, was repositioned, attempts to calm, distract and reassure patient, and use of PRN medications have been unsuccessful so far into the shift. Patient requiring staff at bedside almost constantly in an effort to keep her calm.
--- NOTE | 2024-07-02 22:35 | PC.NURSE ---
Patient has been calm and resting in bed for approximately 45 minutes. Violent restraint order completed and provider notified. Restraints removed by John Ingram RN.
--- NOTE | 2024-07-02 22:53 | PC.NURSE ---
Provider notified and orders received for medical restraints due to patients attempts to remove IVs, medical monitoring equipment, and ambulate without assistance as patient is not able to ambulate safely on her own. Order placed.
--- NOTE | 2024-07-02 23:48 | PC.NURSE ---
Titration of precedex down due to patients heartrate dropping into upper 40s.
[2024-07-03] VITALS (191 sets, daily range): BP systolic 78–124; BP diastolic 53–84; PULSE 38–97; RESP 13–31; TEMP 36.8–36.9; O2SAT 82–100; BMI 22.4
--- NOTE | 2024-07-03 00:24 | PC.NURSE ---
At approximately 0010 patient was attempting to get out of bed and take off medical monitoring equipment. Patient very agitated began to become combative with staff. Staff got patient up to bedside commode. Patient urinated and was cleaned with bath wipes, cardiac monitoring stickers replaced, clean gown, clean bedding all placed as well. When ambulating patient back to the bed she began to become combative and striking staff. Attempts at verbal deescalation unsuccessful and patient put back in bed and placed back in nonviolent bilateral soft wrist restraints. Patient continued to try to be combative and staff attempted to soothe patient. She became satisfied when offered drink and snack.
--- NOTE | 2024-07-03 00:42 | PC.NURSE ---
Titrated precedex back up do to patient continuing to be extremely agitated and aggressive. Patient vitals supported titration.
[2024-07-03] MEDS: diphenhydrAMINE 50 mg/mL SDV 1mL IVP ×3 (01:31→19:16)
[2024-07-03] MEDS: haloperidol inj 5 mg/mL INJ 1 mL 10 MG IM ×3 (01:32→19:16)
[2024-07-03] MEDS: LORazepam 1 MG/0.5 ML injection 2 MG IVP ×3 (01:32→19:17)
[2024-07-03] MEDS: dexmedeTOMIDine 0.9 % NaCL 400 MCG/100 ML PREMIX 10.88 MCG IV (01:49)
--- NOTE | 2024-07-03 01:51 | PC.NURSE ---
Patient had an estimated 30 plus minute episode of being combative, agitated, and being a harm to herself and staff. She was flailing her legs against the bedrails, attempting to get out of bed, hitting and biting. Numerous attempts made to soothe the patient, redirect, distract, reposition, and ease any of her discomforts in an effort to calm her down. All attempts unsuccessful at calming the patient and she was still being a harm to herself. PRN medication orders of benadryl, haldol, and ativan were administered. Patient currently resting calmly
[2024-07-03] MEDS: valproic acid inj 500 MG in sodium chloride 0.9% 50 ML 55 MG IV ×2 (02:26→09:51)
--- NOTE | 2024-07-03 04:45 | PC.NURSE ---
Titration down of precedex due to sustained bradycardia.
--- NOTE | 2024-07-03 06:23 | PC.NURSE ---
Patient has had numerous attempts to remove medical equipment, ambulate, hitting and flailing in the bed potentially causing injury to self and staff. Attempts to verbally calm and redirect patient only successful for a few minutes and then patient begins to become combative and aggressive once again. Patients needs addressed and still does not resolve behaviors that require use of medical restraints.
[2024-07-03] MEDS: escitalopram 10 mg Tablet 20 MG PO (09:36)
[2024-07-03] MEDS: benztropine 1 mg Tablet PO ×2 (09:36→17:10)
[2024-07-03] MEDS: OLANZapine 5 mg ODT 10 MG PO ×2 (09:36→22:09)
[2024-07-03] MEDS: LORazepam 1 MG/0.5 ML injection 0.5 MG IVP ×2 (09:37→17:10)
[2024-07-03] MEDS: dexmedeTOMIDine 0.9 % NaCL 400 MCG/100 ML PREMIX 7.77 MCG IV (12:06)
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
--- NOTE | 2024-07-03 16:35 | P.NPUPN_ITS ---
Subjective NPU 2 Subjective: Patient presented today with only soft restraints on her arms. She was pleasant during interview and was also somewhat distracted with eating. We discussed trying to get her back to her facility but that we would have to work on the behavior patterns. Staff report continued slow reduction in need for as needed medication and code tens. Mental Status Exam 2 MSE Comments: This is a well-nourished well-developed white female with limited grooming but adequate eye contact. No abnormal movements except for extreme psychomotor agitation. Somewhat cooperative with exam in moderate to extreme distress. Speech was increased rate and normal volume and significant dysarthria. Mood not clearly described, affect was irritable. Thought process appeared linear. Thought content: Patient did not report suicidal or homicidal ideation, there were no delusions reported or noted, she did not appear to be attending to internal stimuli. Attention and concentration were limited and memory was mostly unreliable but no more formally tested. She was alert and oriented to person and possibly place. Insight and judgment appear limited versus impaired and impulse control is impaired. Vitals/I&O/Wt Last Vital Signs Temp 98.5 F 07/03/24 16:00 Pulse 51 L 07/03/24 16:00 Resp 17 07/03/24 16:00 BP 124/73 07/03/24 16:00 Pulse Ox 100 07/03/24 16:00 O2 Del Method Room Air 07/02/24 16:20 07/03/24 07/03/24 07/03/24 06:59 14:59 22:59 Intake Total 369.366 / 1366.419 476.967 / 476.967 Output Total 1300 / 2500 Balance -930.634 / -1133.581 476.967 / 476.967 Weight last 48 hrs Weight 63 kg Weight 63 kg Data NPU 06/28/24 13:02 06/28/24 13:02 A&P Assessment and plan (1) Troutman disease: (2) History of traumatic brain injury: (3) Aggressive behavior of adult: (4) At risk for polypharmacy: (5) Depression: (6) History of anxiety: (7) History of major depression: Plan This is a 38-year-old white female with a 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 She is a limited historian and it is unclear what her history really is outside of her clearly having David's based on her movements and having medications in the mood stabilization depression and anxiety rounds in a likely polypharmacy. 1. Continue current medication. Increase Zyprexa to 10 mg 3 times daily and try to remove PRNs and Precedex. 2. Obtain collateral information. Appears patient has history of addiction, unclear if TBI history is accurate. Report from her facility is that she is likely at baseline. Will identify what her treatment plan is and try to recreate that environment here to see if that does not decrease her agitation. Will determine whether she is allowed to move about on the floor or in a wheelchair excetra 3. Appreciate hospitalist consult and will look to give her Precedex to try to remain in the hyperkinetic agitation that is superimposed on her David's disease while we try to figure out how she got to her current medication regiment to identify reasonable changes. 4. Will consult neurology to get some insight into any concerns about the current medications given her movement disorder. 5. Will consider transfer to neuropsychiatric unit when stabilized. 6. Agree with continued as needed medication including the option of having Geodon IM 20 mg up to twice a day. 7. Tentative plan for discharge tomorrow. PDMP PDMP Reviewed: Not Reviewed Attestations NPU 2 Medical Necessity Statement*: Inpatient hospitalization is medically necessary and the clinically appropriate intervention at this time. Will monitor medications and make changes as indicated. Likely length of stay 1-3 days. Coding Level of Care Code Acute Code for [facility] Fwd Diagnoses Troutman disease G10 History of traumatic brain injury Z87.820 Aggressive behavior of adult R46.89 At risk for polypharmacy Z91.89 Depression F32.A History of anxiety Z86.59 History of major depression Z86.59
[2024-07-03] MEDS: OLANZapine 10 mg ODT PO (17:10)
[2024-07-03] MEDS: valproic acid inj 500 MG in sodium chloride 0.9% (plus) 50 ML 55 MG IV (17:11)
--- NOTE | 2024-07-03 22:12 | PC.NURSE ---
Void Unable to accurately measure urine output. Patient soaked two briefs.
[2024-07-04] VITALS (28 sets, daily range): BP systolic 85–120; BP diastolic 52–77; PULSE 57–136; RESP 17–29; TEMP 36.9; O2SAT 90–100
--- NOTE | 2024-07-04 00:02 | XRR_ITS ---
PROCEDURE INFORMATION: Exam: XR Chest Exam date and time: 07/04/2024 12:09 AM Age: 38 years old Clinical indication: Cough; Additional info: Coughing, SOB, possible aspiration TECHNIQUE: Imaging protocol: Radiologic exam of the chest. Views: 1 view. COMPARISON: CR XR chest 1V portable [id number] 06/28/2024 12:35 PM FINDINGS: Lungs: Unremarkable. No consolidation. Pleural spaces: Unremarkable. No pleural effusion. No pneumothorax. Heart/Mediastinum: Unremarkable. No cardiomegaly. Bones/joints: Unremarkable. XR/XR chest 1V portable [id number] IMPRESSION: No acute findings.
[2024-07-04] MEDS: dexmedeTOMIDine 0.9 % NaCL 400 MCG/100 ML PREMIX 12.43 MCG IV (00:15)
[2024-07-04] MEDS: diphenhydrAMINE 50 mg/mL SDV 1mL IVP ×3 (03:30→20:56)
[2024-07-04] MEDS: haloperidol inj 5 mg/mL INJ 1 mL 10 MG IM ×3 (03:30→20:55)
[2024-07-04] MEDS: LORazepam 1 MG/0.5 ML injection 2 MG IVP ×2 (03:30→11:26)
[2024-07-04] MEDS: valproic acid inj 500 MG in sodium chloride 0.9% (plus) 50 ML 55 MG IV ×2 (04:11→10:39)
--- NOTE | 2024-07-04 06:12 | PC.NURSE ---
Violent restraints Patient becoming increasingly agitated and restless, kicking feet and attempting to get out of bed. Patient becoming a danger to staff and herself. Diversion, repositioning, medications, reorientation, music therapy, television, drinks, food, 1:1 talk, toileting, and linen changes all tried in an attempt to calm patient. All attempts unsuccessful. Violent restraints applied to bilateral ankles, in addition to already existing bilateral wrist restraints. Dr Buckner notified of placement of violent restraints and approved. This nurse notified her of need to see patient face to face within an hour. food supervisor Dorie completed face to face for patient.
--- NOTE | 2024-07-04 08:56 | PC.NURSE ---
Since the beginning of this nurse's shift the patient has been resting in their bed. Patient had one episode of pulling at their restraints this morning but immediately went back to resting in bed. Violent restraints were discontinued at 0833. Precedex drip has been titrated down per protocol. Patient is not following commands and is very lethargic. All vital signs have been stable.
[2024-07-04] MEDS: dexmedeTOMIDine 0.9 % NaCL 400 MCG/100 ML PREMIX 9.32 MCG IV (09:03)
[2024-07-04] MEDS: escitalopram 10 mg Tablet 20 MG PO (09:35)
[2024-07-04] MEDS: benztropine 1 mg Tablet PO ×2 (09:35→18:53)
[2024-07-04] MEDS: OLANZapine 5 mg ODT 10 MG PO ×3 (09:35→21:51)
[2024-07-04] MEDS: LORazepam 1 MG/0.5 ML injection 0.5 MG IVP (09:40)
--- NOTE | 2024-07-04 12:09 | PC.NURSE ---
Patient started to get agitated all of a sudden and started to kick wildly. this nurse tried to verbally reorient patient along with repositioning them and repositioning their pillow. Patient would not follow commands and tried to kick staff and started to kick the railings of the bed. Code 10 was called and Ativan, Haldol, and Benadryl were given for agitation per protocol. Dr. Noriega ordered to put in for 1 mg of cogentin IM Q6hr PRN for agitation up to 4 mg daily. Geodon 20 mg IM BID PRN up to 40 mg daily. He also ordered to give these two medications if patient was still agitated after 45 minutes.
--- NOTE | 2024-07-04 12:20 | P.PN_ITS ---
Subjective 2 Subjective: Patient agitated at noon with trying to exit her bed. Her arms are restrained she is sleeping [id number] with her legs. I returned 10 minutes later and was able to listen to her heart and lungs. Patient did not try to bite or kick. We are weaning the Precedex and I have started clonidine 0.2 mg 3 times daily hold for blood pressure and pulse lower parameter Vitals/I&O/Wt Last Vital Signs Temp 98.4 F 07/04/24 05:51 Pulse 86 07/04/24 10:30 Resp 18 07/04/24 09:30 BP 103/65 07/04/24 10:30 Pulse Ox 96 07/04/24 10:30 O2 Del Method Room Air 07/04/24 10:30 07/03/24 07/04/24 07/04/24 22:59 06:59 14:59 Intake Total 515.000 / 991.967 455 / 1446.967 175.656 / 175.656 Balance 515.000 / 991.967 455 / 1446.967 175.656 / 175.656 Weight last 48 hrs Weight 63 kg Physical Exam 2 Narrative: General Well-developed thin female in no acute cardiopulmonary distress CV regular rate and rhythm Lungs clear to auscultation bilaterally Abdomen soft nontender Calves no asymmetry Mood and affect intermittently agitated today Data 06/28/24 13:02 06/28/24 13:02 A&P Assessment and plan (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 She is also on Cogentin. Deferred to psychiatry service primarily but I did start clonidine to offset the Precedex we are weaning off I spoke with Dr. Noriega today. Plan to move patient down to neuropsych unit and let her have some freedom to move. Patient typically has her mattress on the floor. Will see if this allows her to be more calm. Needs to be off restraints and IV meds to return to her previous detention facility (4) At risk for polypharmacy: Complicated case with patient not responding well to antipsychotics (5) Depression: As above Plan Currently restrained and intermittently agitated when not sedated. Discharge not acccepted at her facility until she is off of restraints for 24 hours. PDMP PDMP Reviewed: Not Reviewed Attestations 2 Medical Necessity Statement*: Patient continued need hospitalization. Will move her to the neuro psych unit. Coding Level of Care Code 32923 Diagnoses Yampa disease G10 History of traumatic brain injury Z87.820 Aggressive behavior of adult R46.89 At risk for polypharmacy Z91.89 Depression F32.A Time Spent (min) 25
--- NOTE | 2024-07-04 13:16 | PC.SOCIAL ---
IMM Update pg 2 of IMM updated and reviewed w/ patients guardian, Kristin. Voicemail left. Copy left @ bedside and copy dated, initialed and placed in chart.
[2024-07-04] MEDS: ziprasidone 20 mg/mL SDV IM (13:38)
[2024-07-04] MEDS: water for injection-sterile 10 ML (13:44)
--- NOTE | 2024-07-04 15:49 | PC.NURSE ---
Report was given to Nacho in NPU, All belongings were sent with the patient and all IVs were taken out. Patient was transferred with security. Patient was stable during transfer.
--- NOTE | 2024-07-04 18:30 | P.NPUPN_ITS ---
Subjective NPU 2 Subjective: Patient presented today reporting that she is okay but this is very labile and tentative with her expressing frustration and wanting to do what she wants to do when she wants to do it. She seemed to function better with the switch to the neuropsychiatric unit and the ability to move on the floor but still had moments of agitation but much of her movement seems purposeless and more impulsive than predetermined per staff reports and direct observation. Staff deny any signs of EPS or any reports of issues with medication. Mental Status Exam 2 MSE Comments: This is a well-nourished well-developed white female with limited grooming but adequate eye contact. No abnormal movements except for extreme psychomotor agitation. Somewhat cooperative with exam in moderate to extreme distress. Speech was increased rate and normal volume and significant dysarthria with very significant difficulty being understood. Mood not clearly described, affect was irritable. Thought process appeared linear. Thought content: Patient did not report suicidal or homicidal ideation, there were no delusions reported or noted, she did not appear to be attending to internal stimuli. Attention and concentration were impaired and memory was mostly unreliable but none were formally tested. She was alert and oriented to person and possibly place. Insight and judgment appear impaired and impulse control is impaired. Vitals/I&O/Wt Last Vital Signs Temp 98.5 F 07/04/24 12:00 Pulse 108 H 07/04/24 21:08 Resp 20 H 07/04/24 21:08 BP 92/52 07/04/24 21:53 Pulse Ox 98 07/04/24 21:08 O2 Del Method Room Air 07/04/24 21:08 07/04/24 14:59 Intake Total 657.986 / 657.986 Output Total 900 / 900 Balance -242.014 / -242.014 Data NPU 06/28/24 13:02 06/28/24 13:02 A&P Assessment and plan (1) David disease: (2) History of traumatic brain injury: (3) Aggressive behavior of adult: (4) At risk for polypharmacy: (5) Depression: (6) History of anxiety: (7) History of major depression: Plan This is a 38-year-old white female with a 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 She is a limited historian and it is unclear what her history really is outside of her clearly having David's based on her movements and having medications in the mood stabilization depression and anxiety rounds in a likely polypharmacy. 1. Continue current medication. Increase Zyprexa to 10 mg 3 times daily and try to remove PRNs and Precedex. Give Cogentin 1 mg every 6 hours as needed to be given with any additional antipsychotic injections. Can replace that with Benadryl or appropriate. 2. Obtain collateral information. Appears patient has history of addiction, unclear if TBI history is accurate. Report from her facility is that she is likely at baseline. Will identify what her treatment plan is and try to recreate that environment here to see if that does not decrease her agitation. Will determine whether she is allowed to move about on the floor or in a wheelchair excetra 3. Appreciate hospitalist consult and will look to give her Precedex to try to remain in the hyperkinetic agitation that is superimposed on her Arlington's disease while we try to figure out how she got to her current medication regiment to identify reasonable changes. 4. Consult neurology. 5. Transfer to neuropsychiatric unit and put in room 1 7 need to try to recreate the circumstance she is allowed to function in in her facility. By placing the bed on the floor and giving her the ability to move around. 6. Agree with continued as needed medication including the option of having Geodon IM 20 mg up to twice a day. 7. Tentative plan for discharge tomorrow as patient will be 24 hours out of restraints. PDMP PDMP Reviewed: Not Reviewed Attestations NPU 2 Medical Necessity Statement*: Inpatient hospitalization is medically necessary and the clinically appropriate intervention at this time. Will monitor medications and make changes as indicated. Likely length of stay 1-2 days. Coding Level of Care Code Acute Code for g Fwd Diagnoses Arlington disease G10 History of traumatic brain injury Z87.820 Aggressive behavior of adult R46.89 At risk for polypharmacy Z91.89 Depression F32.A History of anxiety Z86.59 History of major depression Z86.59
[2024-07-04] MEDS: cloNIDine 0.1 mg Tablet 0.2 MG PO (18:45)
[2024-07-04] MEDS: LORazepam 2 mg/mL INJ 1 mL IVP (20:56)
[2024-07-04] MEDS: divalproex DR 500 mg Tablet PO (21:51)
[2024-07-05] MEDS: ziprasidone 20 mg/mL SDV IM (00:18)
[2024-07-05] MEDS: water for injection-sterile 10 ML (00:29)
--- NOTE | 2024-07-05 01:04 | PC.NURSE ---
Unable to do bedside report due to in-house transfer.
--- NOTE | 2024-07-05 06:11 | PC.NURSE ---
VS not completed per charge nurse resp 16
[2024-07-05 08:03] VITALS: BP 120/75
[2024-07-05] MEDS: OLANZapine 5 mg ODT 10 MG PO ×2 (08:03→14:21)
[2024-07-05] MEDS: cloNIDine 0.1 mg Tablet 0.2 MG PO ×2 (08:03→14:21)
[2024-07-05] MEDS: divalproex DR 500 mg Tablet PO ×2 (08:03→14:21)
[2024-07-05] MEDS: escitalopram 10 mg Tablet 20 MG PO (08:03)
[2024-07-05] MEDS: benztropine 1 mg Tablet PO ×2 (08:03→17:28)
[2024-07-05] MEDS: haloperidol inj 5 mg/mL INJ 1 mL 10 MG IM (10:07)
[2024-07-05] MEDS: LORazepam 2 mg/mL INJ 1 mL IVP (10:08)
[2024-07-05] MEDS: diphenhydrAMINE 50 mg/mL SDV 1mL IVP (10:14)
[2024-07-05 14:00] VITALS: BP 122/67; PULSE 78; RESP 16; TEMP 36.6; O2SAT 99
[2024-07-05 14:21] VITALS: BP 134/80
--- NOTE | 2024-07-05 15:30 | P.NPUDS_ITS ---
Diagnoses at Discharge Discharge Diagnosis (1) [place] disease: Status: Acute (2) History of traumatic brain injury: Status: Acute (3) Aggressive behavior of adult: Status: Acute (4) At risk for polypharmacy: Status: Acute (5) Depression: Status: Acute (6) History of anxiety: Status: Acute (7) History of major depression: Status: Acute Reason for Visit Reason for Visit: Combative, HX of TBI Involuntary Hold Information Hold Status: Legal Status: Active Guardianship Discharge Data Studies Completed and Pending: Completed Studies During Hospitalization Category Date Time Status CT head wo con* 7 [id number] Stat Cat Scan 06/28/24 12:32 Completed XR chest 1V swati ble [id number] Stat Exams 06/28/24 12:32 Completed XR chest 1V swati ble [id number] Stat Exams 07/04/24 00:02 Completed Radiology Impressions Head CT 06/28/24 12:32 IMPRESSION: No acute intracranial abnormality. Chest X-Ray 07/04/24 00:02 IMPRESSION: No acute findings. Laboratory Results WBC 7.96 10^3/uL (3.2 9-11.43) 06/28/24 13:02 RBC 3.87 10^6/uL (3.8 5-5.65) 06/28/24 13:02 Hgb 9.20 g/dL (11.27- 16.99) L 06/28/24 13:02 Hct 31.1 % (36-47) L 06/28/24 13:02 MCV 80.4 fl (85-98) L 06/28/24 13:02 MCH 23.8 pg (27-33) L 06/28/24 13:02 MCHC 29.6 g/dL (30-55) L 06/28/24 13:02 RDW 15.4 % (12.1-15.1 ) H 06/28/24 13:02 Plt Count 307 10^3/cmm (157 -399) 06/28/24 13:02 MPV 9.9 fL (7.4-10.4) 06/28/24 13:02 Neut % (Auto) 70.6 % 06/28/24 13:02 Lymph % (Auto) 19.2 % 06/28/24 13:02 [place] % (Auto) 7.3 % 06/28/24 13:02 Eos % (Auto) 2.0 % 06/28/24 13:02 Baso % (Auto) 0.6 % 06/28/24 13:02 Neut # (Auto) 5.62 10^3/uL (1.8 -7.7) 06/28/24 13:02 Lymph # (Auto) 1.5 10^3/uL (0.8- 4.8) 06/28/24 13:02 [place] # (Auto) 0.6 10^3/uL (0.2- 0.9) 06/28/24 13:02 Eos # (Auto) 0.2 10^3/uL (0.0- 0.8) 06/28/24 13:02 Baso # (Auto) 0.1 10^3/uL (0.0- 0.1) 06/28/24 13:02 Nucleated RBC % (a uto) 0 % 06/28/24 13:02 Nucleated RBCs # 0.0 /100WBC 06/28/24 13:02 Sodium 142 mmol/L (136-1 45) 06/28/24 13:02 Potassium 3.8 mmol/L (3.5-5 .1) 06/28/24 13:02 Chloride 105 mmol/L (98-10 7) 06/28/24 13:02 Carbon Dioxide 26 mmol/L (22-29) 06/28/24 13:02 Anion Gap 14.8 (5-19) 06/28/24 13:02 BUN 9 mg/dL (6-20) 06/28/24 13:02 Creatinine 0.5 mg/dL (0.5-0. 9) 06/28/24 13:02 GFR Calculation 138.8 mL/min (90- 130) H 06/28/24 13:02 Glucose 110 mg/dL (65-115 ) 06/28/24 13:02 Calculated Osmolal ity 293 mOsm/kg (285- 295) 06/28/24 13:02 Calcium 8.8 mg/dL (8.5-10 .5) 06/28/24 13:02 Total Bilirubin 0.2 mg/dL (0.15-1 .2) 06/28/24 13:02 AST 13 U/L (0-32) 06/28/24 13:02 ALT 11 U/L (0-33) 06/28/24 13:02 Alkaline Phosphata se 78 U/L (35-105) 06/28/24 13:02 Total Protein 6.8 g/dL (6.6-8.7 ) 06/28/24 13:02 Albumin 3.7 g/dL (3.5-5.2 ) 06/28/24 13:02 Globulin 3.1 g/dL (1.3-4.6 ) 06/28/24 13:02 TSH 1.54 uIU/mL (0.27 -4.20) 06/28/24 13:02 Urine Color Yellow (Yellow) 06/29/24 00:21 Urine Appearance Clear (CLEAR) 06/29/24: Urine pH 6.5 (5-7) 06/29/24 00:21 Ur Specific Gravit y 1.026 (1.005-1.0 30) 06/29/24 00: Urine Protein Trace (Negative) A 06/29/24 00: Urine Glucose (UA) Negative (Normal ) 06/29/24: Urine Ketones Negative (Negati ve) 06/29/24 00: Urine Blood Negative (Negati ve) 06/29/24: Urine Nitrate Negative (Negati ve) 06/29/24: Urine Bilirubin Negative (Negati ve) 06/29/24: Urine Urobilinogen 1.0 mg/dL (Negati ve) 06/29/24 00:21 Ur Leukocyte Abbey ase Negative (Negati ve) 06/29/24 00: Urine RBC 0-2 /hpf (0-2) 06/29/24: Urine WBC 0-5 /hpf (0-5) 06/29/24 00:21 Ur Squamous Epith Cells 6-10 /hpf (0-5) 06/29/24 00: Amorphous Sediment Not Reportable 06/29/24: Urine Bacteria 2+ /hpf (NONE) H 06/29/24 00:21 Hyaline Casts 1.21 /lpf 06/29/24 00:21 Urine Opiates Scre en Negative ng/mL (N egative) 06/29/24 09:53 Ur Barbiturates Sc reen Negative ng/mL (N egative) 06/29/24 09:53 Ur Phencyclidine S crn Negative ng/mL (N egative) 06/29/24 09:53 Ur Amphetamines Sc reen Negative ng/mL (N egative) 06/29/24 09:53 U Benzodiazepines Scrn Positive ng/mL (N egative) H 06/29/24 09:53 Urine Cocaine Scre en Negative ng/mL (N egative) 06/29/24 09:53 U Marijuana (THC) Screen Negative ng/mL (N egative) 06/29/24 09:53 Vitals: Last Vital Signs Temp 98.5 F 07/04/24 12:00 Pulse 108 H 07/04/24 21:08 Resp 20 H 07/04/24 21:08 BP 134/80 07/05/24 14:21 Pulse Ox 98 07/04/24 21:08 O2 Del Method Room Air 07/04/24 21:08 Discharge Plan Discharge Patient Disposition: Home Condition: Stable Prescriptions: New clonidine HCl 0.1 mg Tablet 0.2 mg PO TID 30 Days Qty: 180 1RF divalproex 500 mg Tablet,Delayed Release (Dr/Ec) 500 mg PO TID 30 Days Qty: 90 1RF olanzapine 10 mg tablet 10 mg PO TID 30 Days Qty: 90 1RF Continued hydroxyzine HCl 25 mg tablet 25 mg PO TID baclofen 5 mg tablet 5 mg PO TID acetaminophen 325 mg Tablet 650 mg PO Q4H PRN (Reason: general discomfort) magnesium hydroxide [Milk of Magnesia] 400 mg/5 mL Suspension 30 ml PO DAILY PRN (Reason: Constipation) bisacodyl 10 mg Suppository 10 mg KS DAILY PRN (Reason: Constipation) polyethylene glycol 3350 [Miralax] 17 gram/dose Powder 17 g PO DAILY PRN (Reason: Constipation) ammonium lactate 12 % lotion See Rx Instructions .ROUTE .COMPLEX Rx Instructions: Apply topically to bilateral heels twice daily for dry skin. lorazepam 0.5 mg tablet 0.5 mg PO TID escitalopram oxalate 20 mg tablet 20 mg PO DAILY 30 Days Qty: 30 1RF Discontinued olanzapine 7.5 mg tablet 7.5 mg PO BEDTIME olanzapine 5 mg tablet 5 mg PO DAILY buspirone 7.5 mg tablet 7.5 mg PO TID Discharge Orders: Discharge Order (Routine); Ordered 07/05/24 Ordered By: Ronen Noirega Discharge Diet: Usual diet Discharge Activity: Resume usual activity Patient Instructions: Opioid Safety Discharge Attestations NPU Time Spent in Discharge Care*: greater than 30 min Specific Discharge Activities: Specific discharge activities: discussing with pcp/other providers, discussing with pillowcase cutter/social workers/dc planners, documenting/other paperwork and evaluating patient/reviewing data Coding Level of Care Code Acute Code for Chg Fwd Diagnoses [place] disease G10 History of traumatic brain injury Z87.820 Aggressive behavior of adult R46.89 At risk for polypharmacy Z91.89 Depression F32.A History of anxiety Z86.59 History of major depression Z86.59
[2024-07-05 15:41] VITALS: BP 134/88; PULSE 88; RESP 18; TEMP 36.9; O2SAT 98
[2024-07-05 15:54] VITALS: BP 134/88; PULSE 88; RESP 18; TEMP 36.9; O2SAT 98
== END 2024-07-05 18:07 | disposition skilled nursing facility (03) | DRG 57 ==
LOC: ER 14:49 → MEDSURG 16:26 → ICU 06-29 15:22 → NP 07-04 15:09
PROVIDERS: Psychiatry & Neurology Psychiatry; Admitting Provider Psychiatry & Neurology Psychiatry; Emergency Provider Emergency Medicine; Visit Provider Psychiatry & Neurology Psychiatry
DX: G10 Huntington's disease (principal); Z87.820 Personal history of traumatic brain injury; Z79.899 Other long term (current) drug therapy; F32.9 Major depressive disorder, single episode, unspecified; F41.9 Anxiety disorder, unspecified
CPT/HCPCS: 36415; 36592; 70450; 71045; 80053; 80306; 81001; 84443; 85025; 93005; 96372; 96374; 96376; 97165; 99285; A4570; J0515; J1200; J1630; J2060; J3486; J3490; J7030; J9999